=== PATIENT | female | born 1985 | race Caucasian/White ===

== ENCOUNTER 2016-12-15 21:56 | Emergency (ER) | payer OTHER ==
[2016-12-15 22:09] VITALS: BP 151/90; PULSE 84; TEMP 97.9; BMI 28.2
--- NOTE | 2016-12-15 22:32 | PDOC ---
History of Present Illness - General History Source: Patient Exam Limitations: No Limitations - History of Present Illness Initial Comments: 12/15/16 23:04 The patient is a 31 year old female with a significant past medical history of hypertension, presenting to the Emergency Department with headache and high blood pressure. The patient reports that her PCP raised her hydrochlorothiazide prescription from 25mg to 50mg about 6 months ago but that she has not been compliant with the medication in a few months. She reports that this morning she had a frontal headache, for which she took advil with some relief. She states that she then took her blood pressure which read 173/101. She states that her headache is persistent, and that she has previously had similar headaches. She admits that 6 months ago, at about the time of the medication increase, she went to the [place] to have plastic surgery. The patient denies a diet high in salt or fat content. Patient denies weakness, dizziness, or change in vision. Patient denies chest pain, palpitations, or shortness of breath. Patient denies nausea, vomiting, and diarrhea. Patient denies fever, chills, and cough. Familial Hx: mother hypertension, mother diabetes <Alayna Zacarias - Last Filed: 12/15/16 23:04> <Crystal Alejandro - Last Filed: 12/16/16 20:19> - General Chief Complaint: Blood Pressure Problem Stated Complaint: BLOOD PRESSURE PROBLEM Time Seen by Provider: 12/15/16 22:32 Past History <Alayna Zacarias - Last Filed: 12/15/16 23:04> - Past Medical History HTN: Yes - Psycho/Social/Smoking Cessation Hx Suicidal Ideation: No Smoking History: Never smoked <Crystal Alejandro - Last Filed: 12/16/16 20:19> - Past Medical History Allergies/Adverse Reactions: Allergies Allergy/AdvReac Type Severity Reaction Status Date / Time No Known Allergies Allergy Verified 12/15/16 22:07 Home Medications: Ambulatory Orders Hydrochlorothiazide [Hctz -] 25 mg PO DAILY 12/15/16 Hydrochlorothiazide [Hctz -] 25 mg PO DAILY #30 tablet 12/15/16 Review of Systems - Review of Systems Able to Perform ROS?: Yes Comments:: 12/15/16 23:04 GENERAL/CONSTITUTIONAL: + high blood pressure. No fever or chills. No weakness. HEAD, EYES, EARS, NOSE AND THROAT: No change in vision. No ear pain or discharge. No sore throat. CARDIOVASCULAR: No chest pain or shortness of breath. RESPIRATORY: No cough, wheezing, or hemoptysis. GASTROINTESTINAL: No nausea, vomiting, diarrhea or constipation. GENITOURINARY: No dysuria, frequency, or change in urination. MUSCULOSKELETAL: No joint or muscle swelling or pain. No neck or back pain. SKIN: No rash NEUROLOGIC: + headache. No vertigo, loss of consciousness, or change in strength /sensation. ENDOCRINE: No increased thirst. No abnormal weight change. HEMATOLOGIC/LYMPHATIC: No anemia, easy bleeding, or history of blood clots. ALLERGIC/IMMUNOLOGIC: No hives or skin allergy. <Alayna Zacarias - Last Filed: 12/15/16 23:04> *Physical Exam - Vital Signs Last Vital Signs Temp Pulse Resp BP Pulse Ox 97.9 F 84 18 151/90 99 12/15/16 22:08 12/15/16 22:08 12/15/16 22:08 12/15/16 22:08 12/15/16 22:08 - Physical Exam Comments: 12/15/16 23:06 GENERAL: Awake, alert, and fully oriented, in no acute distress HEAD: No signs of trauma EYES: PERRLA, EOMI, sclera anicteric, conjunctiva clear ENT: Auricles normal inspection, hearing grossly normal, nares patent, oropharynx clear without exudates. Moist mucosa NECK: Normal ROM, supple, no lymphadenopathy, JVD, or masses LUNGS: Breath sounds equal, clear to auscultation bilaterally. No wheezes, and no crackles HEART: Regular rate and rhythm, normal S1 and S2, no murmurs, rubs or gallops ABDOMEN: Soft, nontender, normoactive bowel sounds. No guarding, no rebound. No masses EXTREMITIES: Normal range of motion, no edema. No clubbing or cyanosis. No cords, erythema, or tenderness NEUROLOGICAL: Cranial nerves II through XII grossly intact. Normal speech, normal gait SKIN: Warm, Dry, normal turgor, no rashes or lesions noted. <Alayna Zacarias - Last Filed: 12/15/16 23:04> - Vital Signs Last Vital Signs Temp Pulse Resp BP Pulse Ox 97.9 F 84 18 151/90 99 12/15/16 22:08 12/15/16 22:08 12/15/16 22:08 12/15/16 22:08 12/15/16 22:08 <Crystal Alejandro - Last Filed: 12/16/16 20:19> Medical Decision Making - Medical Decision Making 12/16/16 20:19 Pt ran out of her HCTZ months ago and she is having high BP no and she wants a prescription for it. <Crystal Alejandro - Last Filed: 12/16/16 20:19> *DC/Admit/Observation/Transfer - Attestations Scribe Attestion: 12/15/16 23:06 Documentation prepared by Alayna Zacarias, acting as registered medical assistant for Crystal Alejandro MD. <Alayna Zacarias - Last Filed: 12/15/16 23:04> - Discharge Dispostion Admit: No <Crystal Alejandro - Last Filed: 12/16/16 20:19> Diagnosis at time of Disposition: Medication refill, HTN (hypertension) - Discharge Dispostion Disposition: HOME Condition at time of disposition: Stable - Prescriptions Prescriptions: Hydrochlorothiazide [Hctz -] 25 mg PO DAILY #30 tablet - Referrals Referrals: STAFF,NOT ON [Primary Care Provider] - - Patient Instructions Printed Discharge Instructions: DI for High Blood Pressure, How to Monitor Your Blood Pressure at Home
[2016-12-15] MEDS ORDERED: hydrALAZINE HCL 25 MG TABLET (FP) PO ONE (22:55)
[2016-12-15] MEDS ORDERED: HYDROCHLOROTHIAZIDE 25 MG TABLET (FP) PO ONE (22:58)
[2016-12-16] MEDS ORDERED: HYDROCHLOROTHIAZIDE 25 MG TABLET (FP) ONE (00:13)
== END 2016-12-15 23:50 | disposition home or self-care (01) ==
LOC: JER 21:56
DX: I10 Essential (primary) hypertension (principal)
CPT/HCPCS: 99281-25

== ENCOUNTER 2017-08-17 20:51 | Emergency (ER) | payer OTHER ==
[2017-08-17 20:59] VITALS: PULSE 82; BMI 29.7
[2017-08-17] MEDS ORDERED: SODIUM CHLORIDE 500 ML IV STA (21:31)
[2017-08-17] MEDS ORDERED: methylPREDNISolone NA SUCC 125 MG/2 ML VIAL IVPUSH ONE (21:31)
[2017-08-17] MEDS ORDERED: METOCLOPRAMIDE HCL INJECTION 10 MG/2 ML VIAL IVPUSH ONE (21:31)
--- NOTE | 2017-08-17 21:43 | PDOC ---
History of Present Illness - General Chief Complaint: Headache Stated Complaint: CHEST PAIN Time Seen by Provider: 08/17/17 21:11 History Source: Patient, Spouse Exam Limitations: No Limitations - History of Present Illness Initial Comments: 08/17/17 21:33 32yo Female patient with PmHx: HTN presents to ED c/o 2 day history of headache , seeing floaters (black spots in air), and elevated b/p although taking her daily medications. Patient states HTN began 1 year ago prior to plastic surgery in [facility], and after surgery b/p remained high. Patient states she was instructed to return to the [facility] and follow up with her PMD who prescribed her HCTZ 12.5mg. Patient reports she has been taking her medications as prescribed with h/a "every now and then." Patient also c/o associated left chest pain with deep breathing, and left arm numbness, and dizziness. Denies smoking or oral contraceptive use. LNMP: Aug 08. Denies vision changes, n/v/d , fever, abd pain, back pain or any other complaints at this time. PCP: Dr. Vásquez Timing/Duration: reports: other (2 days) Severity: Yes: moderate Episode Description: See HPI Associated Symptoms: denies: denies symptoms, confusion, fatigue, fever/chills, insomnia, loss of consciousness, muscle spasms, nausea/vomiting, numbness in legs/feet, paresthesia, ringing in ears, seizures, sleepy, slurred speech, tingling in legs/feet, trouble walking, vision changes, weakness, other Past History - Travel Traveled outside of the country in the last 30 days: No Close contact w/someone who was outside of country & ill: No - Past Medical History Allergies/Adverse Reactions: Allergies Allergy/AdvReac Type Severity Reaction Status Date / Time No Known Allergies Allergy Verified 08/17/17 20:59 Home Medications: Ambulatory Orders Hydrochlorothiazide [Hctz -] 25 mg PO DAILY 12/15/16 Hydrochlorothiazide [Hctz -] 25 mg PO DAILY #30 tablet 12/15/16 HTN: Yes - Suicide/Smoking/Psychosocial Hx Smoking History: Never smoked Neuro Specific PMHX - Complaint Specific PMHX Glaucoma: No Herniated Disk: No Laminectomy: No Migraine: No Multiple Sclerosis: No Neuropathy: No TIA: No Review of Systems - Review of Systems Able to Perform ROS?: Yes Is the patient limited Nepalese proficient: No Constitutional: No: Chills, Fever HEENTM: No: Eye Pain, Blurred Vision, Double Vision Respiratory: No: Cough, Shortness of Breath, Stridor, Wheezing Cardiac (ROS): Yes: Chest Pain. No: Edema, Lightheadedness, Palpitations, Syncope, Chest Tightness ABD/GI: No: Blood Streaked Bowels, Constipated, Diarrhea, Nausea, Poor Appetite , Poor Fluid Intake, Vomiting, Abdominal cramping : No: Burning, Dysuria, Flank Pain, Hematuria, Pain, Urgency Musculoskeletal: No: Back Pain Neurological: Yes: Headache, Numbness, Dizziness. No: Seizure, Tremors, Weakness, Unsteady Gait, Ataxia Psychiatric: No: Anxiety, Depression, Frequent Crying, Stressors, Sleep Pattern Change, Emotional Problems, Mood Swings, Change in Appetite, Other All Other Systems: Reviewed and Negative *Physical Exam - Vital Signs Last Vital Signs Temp Pulse Resp BP Pulse Ox 98.4 F 82 18 137/98 99 08/17/17 20:57 08/17/17 20:57 08/17/17 20:57 08/17/17 20:57 08/17/17 20:57 - Physical Exam General Appearance: Yes: Nourished, Appropriately Dressed. No: Apparent Distress, Disheveled, Mild Distress, Moderate Distress, Severe Distress HEENT: positive: EOMI, CELIA, Normal ENT Inspection, Normal Voice, Symmetrical, TMs Normal, Pharynx Normal. negative: Pharyngeal Erythema, Tonsillar Exudate, Tonsillar Erythema, Nasal Congestion, Rhinorrhea, Sinus Tenderness, Hearing Decreased, Hearing Grossly Normal, TM Bulging, TM Dull, TM Erythema Neck: positive: Trachea midline, Supple. negative: Stridor, Lymphadenopathy (R) , Lymphadenopathy (L), Tender lateral, Tender midline Respiratory/Chest: positive: Lungs Clear, Normal Breath Sounds. negative: Chest Tender, Respiratory Distress, Accessory Muscle Use, Labored Respiration, Rapid RR, Paradoxal Breathing, Rhonchi, Stridor Cardiovascular: positive: Regular Rhythm, Regular Rate Gastrointestinal/Abdominal: positive: Normal Bowel Sounds, Soft. negative: Distended, Guarding, Rebound, Tenderness Musculoskeletal: positive: Normal Inspection. negative: CVA Tenderness, Vertebral Tenderness Extremity: positive: Normal Capillary Refill, Normal Inspection, Normal Range of Motion. negative: Pedal Edema, Swelling, Calf Tenderness, Erythema, Inflammation Integumentary: positive: Normal Color, Dry, Warm Neurologic: positive: oven stripper II-XII NML intact, Fully Oriented, Alert, Normal Mood/ Affect, Normal Response, Motor Strength 03/01 ED Treatment Course - LABORATORY CBC & Chemistry Diagram: 08/17/17 20:40 08/17/17 20:40 - RADIOLOGY Radiology Studies Ordered: Category Date Time Status CHEST PA & LAT [RAD] Stat Radiology 08/17/17 21:22 Ordered *DC/Admit/Observation/Transfer Diagnosis at time of Disposition: Headache Qualifiers: Headache type: tension-type Headache chronicity pattern: acute headache Intractability: not intractable Qualified Code(s): G44.209 - Tension-type headache, unspecified, not intractable; G44.209 - Tension-type headache, unspecified, not intractable HTN (hypertension) Qualifiers: Hypertension type: other secondary hypertension Qualified Code(s): I15.8 - Other secondary hypertension; I15.8 - Other secondary hypertension; I15.8 - Other secondary hypertension - Discharge Dispostion Disposition: HOME Condition at time of disposition: Improved Admit: No - Referrals Referrals: STAFF,NOT ON [Primary Care Provider] - Vaibhav Ayala MD [Staff Physician] - - Patient Instructions Printed Discharge Instructions: High Blood Pressure Additional Instructions: Continue to take your medications as prescribed. Also, follow up with your doctor to discuss adjust of your dosage or change in medications. Call Dr. Ayala (Cardiology) to schedule appointment for further evaluation. Print Language: CUBAN - Post Discharge Activity Forms/Work/School Notes: Back to Work
[2017-08-17] MEDS ORDERED: METOCLOPRAMIDE HCL INJECTION 10 MG/2 ML VIAL ONE (22:38)
[2017-08-17] MEDS ORDERED: methylPREDNISolone NA SUCC 125 MG/2 ML VIAL ONE (22:38)
[2017-08-17 22:39] LABS: URINE APPEARANCE CLEAR; URINE BILIRUBIN NEGATIVE (NEGATIVE); URINE BLOOD NEGATIVE (NEGATIVE); URINE COLOR LTYELLOW; URINE GLUCOSE (UA) NEGATIVE (NEGATIVE); URINE KETONE NEGATIVE (NEGATIVE); URINE NITRITE NEGATIVE (NEGATIVE); URINE PROTEIN NEGATIVE (NEGATIVE); URINE UROBILINOGEN NEGATIVE mg/dL (0.2-1.0)
[2017-08-17 22:43] LABS: BASOPHIL 0.6 % (0-2.0); MCH 30.2 pg (25.7-33.7); MCHC 34.7 g/dl (32.0-36.0); MEAN CELL VOLUME 86.9 fl (80-96); MEAN PLT VOLUME 7.7 fl (7.5-11.1); NEUTROPHILS 67.6 % (42.8-82.8); PLATELET COUNT 369 K/MM3 (134-434); RDW 14.5 % (11.6-15.6); WHITE BLOOD COUNT 7.5 K/mm3 (4.0-10.0)
[2017-08-17 23:05] LABS: ALBUMIN 3.8 g/dl (3.4-5.0); ANION GAP 6 (8-16); BILIRUBIN,TOTAL 0.3 mg/dL (0.2-1.0); CALCIUM 9.3 mg/dL (8.5-10.1); CO2 30 mmol/L (21-32); CREATININE 0.8 mg/dL (0.55-1.02); GLUCOSE,RANDOM 94 mg/dL (74-106); SGOT/AST 15 U/L (15-37); SGPT/ALT 28 U/L (12-78); TOT PROT 7.8 g/dl (6.4-8.2)
[2017-08-17 23:13] LABS: ALK PHOS 94 U/L (45-117); CPK 59 IU/L (26-192); THYROID STIMULATING HORMONE 0.91 uIU/ml (0.358-3.74); TROPONIN I < 0.02 ng/ml (0.00-0.05)
[2017-08-17] MEDS ORDERED: METOPROLOL TARTRATE 25 MG TABLET (FP) PO ONE (23:30)
[2017-08-18 00:17] VITALS: TEMP 95.7
[2017-08-18] MEDS ORDERED: METOPROLOL TARTRATE 25 MG TABLET (FP) ONE (00:28)
[2017-08-18 01:07] VITALS: BP 98/58
--- NOTE | 2017-08-18 10:51 | EKG ---
Test Reason : Blood Pressure : / mmHG Vent. Rate : 065 BPM Atrial Rate : 065 BPM P-R Int : 134 ms QRS Dur : 084 ms QT Int : 408 ms P-R-T Axes : 041 025 031 degrees QTc Int : 424 ms NORMAL SINUS RHYTHM NORMAL ECG NO PREVIOUS ECGS AVAILABLE Confirmed by KAMRAN JOINER, SEBASTIAN ([id number]) on 08/18/2017 10:51:31 AM Referred By: Confirmed By:SEBASTIAN ANDREW MD
[2017-08-18 13:52] LABS: URINE LEUK ESTERASE Negative (NEGATIVE)
== END 2017-08-18 02:10 | disposition home or self-care (01) ==
LOC: JER 20:51
PROC: 3E0333Z Introduction of Anti-inflammatory into Peripheral Vein, Percutaneous Approach (ICD-10-PCS; principal; 2017-08-17)
PROC: 3E033GC Introduction of Other Therapeutic Substance into Peripheral Vein, Percutaneous Approach (ICD-10-PCS; 2017-08-17)
PROC: 3E033GC Introduction of Other Therapeutic Substance into Peripheral Vein, Percutaneous Approach (ICD-10-PCS; 2017-08-17)
DX: G44.209 Tension-type headache, unspecified, not intractable (principal); I15.8 Other secondary hypertension
CPT/HCPCS: 36415; 71020-TC; 80053; 81003; 82550; 84443; 84484; 84703; 85025; 93005; 93010; 96374; 96375; 99283-25

== ENCOUNTER 2018-09-01 08:50 | Emergency (ER) | payer OTHER ==
[2018-09-01 09:19] VITALS: BP 137/83; PULSE 70; TEMP 98.5; BMI 30.7
--- NOTE | 2018-09-01 09:31 | PDOC ---
History of Present Illness <Juliet Galarza - Last Filed: 09/01/18 14:41> - General History Source: Patient Exam Limitations: No Limitations - History of Present Illness Travel History: No Initial Comments: 09/01/18 09:31 33y F hx of htn presents with lower abdominal pain. Pt states since last night, she has been having gradually worsening suprapubic pain. pt notes the pain is constant, but seems to worsen for a few seconds a time. It seems worse when she is seated and improved when she is walking around. Pt denies any fever/chills, nausea/vomiting, diarrhea,dysuira. Pt does not some urinary frequency that has been going on for several months, she had gone to an ER in the [place] and had a UA that did not show any uti.. pt notes she never had pain associated with this previously. Pt denies any cp, sob, palpitations, vag bleeding, vag discharge LMP 08/22 Surgical hx: gall bladder PMD in [place] <Yeyo Cortez - Last Filed: 09/01/18 15:12> - General Chief Complaint: Pain Stated Complaint: PAIN Time Seen by Provider: 09/01/18 09:24 Past History <Juliet Galarza - Last Filed: 09/01/18 14:41> - Past Medical History COPD: No HTN: Yes - Suicide/Smoking/Psychosocial Hx Smoking History: Never smoked <Yeyo Cortez - Last Filed: 09/01/18 15:12> - Past Medical History Allergies/Adverse Reactions: Allergies Allergy/AdvReac Type Severity Reaction Status Date / Time No Known Allergies Allergy Verified 09/01/18 09:19 Home Medications: Ambulatory Orders Hydrochlorothiazide [Hctz -] 25 mg PO DAILY #30 tablet 12/15/16 Review of Systems - Review of Systems Able to Perform ROS?: Yes Comments:: 09/01/18 09:34 Constitutional - no reported Fever, Chills, HEENT: no reported vision changes, sore throat Respiratory: no reported cough, sob, hemoptysis Cardiac: no reported chest pain, palpitations, light headedness, leg swelling Abd/GI: +abd pain, no reported nausea, vomiting, blood per rectum, melena, diarrhea : +frequency, no reported dysuria, discharge Musculskelatal - no reported back pain, joint swelling skin - no reported bruising, erythema, rash neurological: no reported headache, numbness, focal weakness, tingling, ataxia, hematologic: no reported easy bruising, easy bleeding <Yeyo Cortez - Last Filed: 09/01/18 15:12> *Physical Exam - Vital Signs Last Vital Signs Temp Pulse Resp BP Pulse Ox 98.5 F 70 16 137/83 98 09/01/18 09:18 09/01/18 09:18 09/01/18 09:18 09/01/18 09:18 09/01/18 09:18 <Juliet Galarza - Last Filed: 09/01/18 14:41> - Vital Signs Last Vital Signs Temp Pulse Resp BP Pulse Ox 98.5 F 70 16 137/83 98 09/01/18 09:18 09/01/18 09:18 09/01/18 09:18 09/01/18 09:18 09/01/18 09:18 - Physical Exam Comments: 09/01/18 09:34 GENERAL: The patient is awake, alert, and fully oriented, Nontoxic - in no acute distress. HEAD: Normocephalic, atraumatic. EYES: extraocular movements intact, sclera anicteric, conjunctiva clear. ENT: Normal voice, Moist mucous membranes. NECK: Normal range of motion, supple LUNGS: Breath sounds equal, clear to auscultation bilaterally. No wheezes, no rhonchi, no rales. HEART: Regular rate and rhythm, normal S1 and S2 without murmur, rub or gallop. ABDOMEN: Soft, moderate suprapubic tenderness, No guarding, no rebound. No CVA tenderness EXTREMITIES: Normal range of motion, NEUROLOGICAL: No facial assymetry, Normal speech, movinga ll 4extremities spontaneously and symmetrically PSYCH: Normal mood, normal affect. SKIN: Warm, Dry, normal turgor, <Yeyo Cortez - Last Filed: 09/01/18 15:12> ED Treatment Course - LABORATORY CBC & Chemistry Diagram: 09/01/18 10:54 09/01/18 10:54 - ADDITIONAL ORDERS Additional order review: Laboratory Results 09/01/18 09/01/18 10:54 09:00 Sodium 138 Potassium 3.5 Chloride 104 Carbon Dioxide 28 Anion Gap 7 L BUN 15 Creatinine 0.7 Creat Clearance w eGFR > 60 Random Glucose 101 Calcium 9.2 Total Bilirubin 0.4 AST 19 ALT 26 Alkaline Phosphatase 83 Total Protein 7.0 Albumin 3.7 Urine Color Yellow Urine Appearance Slcloudy Urine pH 5.0 Ur Specific [place] 1.028 Urine Protein Negative Urine Glucose (UA) Negative Urine Ketones Negative Urine Blood Negative Urine Nitrite Negative Urine Bilirubin Negative Urine Urobilinogen Negative Ur Leukocyte Esterase Negative Urine HCG, Qual Negative 09/01/18 10:54 RBC 3.67 MCV 87.3 MCHC 35.7 RDW 14.7 MPV 7.8 Neutrophils % 67.1 Lymphocytes % 24.0 Monocytes % 7.1 Eosinophils % 1.5 Basophils % 0.3 - RADIOLOGY Radiograph Interpretation: 09/01/18 14:41 EXAM#: TYPE/EXAM: RESULT: [id number] CT/ABDOMEN PELVIS CT WITH CONTR HISTORY PROVIDED: Right lower quadrant pain. IMPRESSION: 1. Mild diffuse fatty infiltration of the liver. 2. Prominent uterus with thickened endometrium. 3. No evidence of appendicitis or acute pathology within the abdomen or pelvis. Please see above discussion. Reported By: Myles Chappell MD 09/01/18 1420 - Medications Given in the ED: ED Medications Discontinued Medications Generic Name Dose Route Start Last Admin Trade Name Freq PRN Reason Stop Dose Admin Morphine Sulfate 2 mg 09/01/18 10:42 09/01/18 10:58 Morphine Injection - IVPUSH 09/01/18 10:43 2 mg ONCE ONE Administration <Juliet Galarza - Last Filed: 09/01/18 14:41> - LABORATORY CBC & Chemistry Diagram: 09/01/18 10:54 09/01/18 10:54 <Yeyo Cortez - Last Filed: 09/01/18 15:12> Medical Decision Making - Medical Decision Making 09/01/18 09:36 Differential for the patient's pain includes possible urinary tract infection, kidney stones, ovarian torsion, consider possible appendicitis Will obtain UA, hcg if neg will obtain blood work and US 09/01/18 12:13 The patient's lab work was reviewed it is unremarkable without signs of leukocytosis or left shift. Her CMP and UA are negative, hCG is negative. She is ultrasound revealed thickened endometrial stripe. To reevaluate the patient the patient now has some mild right lower quadrant tenderness. Will obtain CT of abdomen to rule out appendicitis, patient agrees with plan 09/01/18 14:[address] neg for acute process pt feeling improved abd soft nontender will dc with pmd fu returnp recautions were discussed I discussed the physical exam findings, ancillary test results and final diagnoses with the patient. I answered all of the patient's questions. The patient was satisfied with the care received and felt comfortable with the discharge plan and treatment plan. The patient will call their primary care physician within 24 hours to arrange follow-up and will return to the Emergency Department with any new, persistent or worsening symptoms. <Yeyo Cortez - Last Filed: 09/01/18 15:12> *DC/Admit/Observation/Transfer - Attestations Scribe Attestion: 09/01/18 14:41 Documentation prepared by Juliet Galarza, acting as medical policy specialist for Yeyo Cortez MD <Juliet Galarza - Last Filed: 09/01/18 14:41> - Discharge Dispostion Decision to Admit order: No <Yeyo Cortez - Last Filed: 09/01/18 15:12> Diagnosis at time of Disposition: Abdominal pain Qualifiers: Abdominal location: lower abdomen, unspecified Qualified Code(s): R10.30 - Lower abdominal pain, unspecified - Discharge Dispostion Disposition: HOME Condition at time of disposition: Improved - Referrals [place]errals: [facility] [place] [Provider Group] Jean Paul Carlson MD [Staff Physician] - - Patient Instructions Printed Discharge Instructions: DI for Abdominal Pain-Adult Additional Instructions: Return to the emergency department immediately with ANY new, persistent or worsening symptoms including worsening abdominal pain, fevers, inability to tolerate oral intake, chest pain, shortness of breath or any other concerns. Stay well hydrated. You MUST call and follow up with your doctor tomorrow. Your emergency department visit is not complete without a followup with your doctor for reevaluation. Please make sure your doctor reviews the results of your emergency evaluation. Print Language: SLOVENIAN
[2018-09-01 10:26] LABS: HCG,QUALITATIVE URINE Negative
[2018-09-01 10:32] LABS: URINE APPEARANCE SLCLOUDY; URINE BILIRUBIN NEGATIVE (<2.0 mg/dL); URINE COLOR YELLOW; URINE GLUCOSE (UA) NEGATIVE (NEGATIVE); URINE KETONE NEGATIVE (NEGATIVE); URINE LEUK ESTERASE NEGATIVE (NEGATIVE); URINE NITRITE NEGATIVE (NEGATIVE); URINE PROTEIN NEGATIVE (NEGATIVE); URINE UROBILINOGEN NEGATIVE mg/dL (0.2-1.0)
[2018-09-01] MEDS ORDERED: morphine CARPU-JECT 2 MG/1 ML DISP.SYRIN IVPUSH ONE (10:42)
[2018-09-01] MEDS ORDERED: MORPHINE SULFATE 2 MG/ML VIAL ONE (10:48)
[2018-09-01 11:05] LABS: BASO % 0.3 % (0-2.0); EOS % 1.5 % (0-4.5); HEMOGLOBIN 11.4 GM/dL (10.7-15.3); MCH 31.1 pg (25.7-33.7); MCHC 35.7 g/dl (32.0-36.0); MEAN CELL VOLUME 87.3 fl (80-96); MEAN PLT VOLUME 7.8 fl (7.5-11.1); MONO % 7.1 % (3.8-10.2); NEUT % 67.1 % (42.8-82.8); PLATELET COUNT 366 K/MM3 (134-434); RBC 3.67 M/mm3 (3.60-5.2); RDW 14.7 % (11.6-15.6); WHITE BLOOD COUNT 6.5 K/mm3 (4.0-10.0)
[2018-09-01 11:38] LABS: ALBUMIN 3.7 g/dl (3.4-5.0); ALK PHOS 83 U/L (45-117); ANION GAP 7 MMOL/L (8-16); BILIRUBIN,TOTAL 0.4 mg/dL (0.2-1); BLOOD UREA NITROGEN 15 mg/dL (7-18); CALCIUM 9.2 mg/dL (8.5-10.1); CHLORIDE 104 mmol/L (98-107); CO2 28 mmol/L (21-32); CREATININE 0.7 mg/dL (0.55-1.3); GLUCOSE,RANDOM 101 mg/dL (74-106); POTASSIUM 3.5 mmol/L (3.5-5.1); SGOT/AST 19 U/L (15-37); SGPT/ALT 26 U/L (13-61); SODIUM 138 mmol/L (136-145)
== END 2018-09-01 15:25 | disposition home or self-care (01) ==
LOC: JER 08:50
PROC: 3E033NZ Introduction of Analgesics, Hypnotics, Sedatives into Peripheral Vein, Percutaneous Approach (ICD-10-PCS; principal; 2018-09-01)
DX: R10.30 Lower abdominal pain, unspecified (principal); I10 Essential (primary) hypertension
CPT/HCPCS: 36415; 74177-TC; 76830-TC; 80053; 81003; 84703; 85025; 87086; 96374; 99282-25

== ENCOUNTER 2018-11-25 11:31 | Emergency (ER) | payer OTHER ==
[2018-11-25 11:42] VITALS: BP 148/84; PULSE 90; TEMP 98.6; BMI 30.9
[2018-11-25] MEDS ORDERED: DEXAMETHASONE LIQUID 0.5 MG/5 ML 240 ML BULK BOTTLE PO ONE (12:06)
[2018-11-25] MEDS ORDERED: PENICILLIN G BENZATHINE 2,400,000 UNIT/4 ML PFS IM ONE (12:06)
[2018-11-25] MEDS ORDERED: DEXAMETHASONE SOD PHOSPHATE 4 MG/1 ML VIAL ONE (12:10)
[2018-11-25] MEDS ORDERED: PENICILLIN G BENZATHINE 1,200,000 UNIT/2 ML PFS IM ONE (12:10)
--- NOTE | 2018-11-25 12:10 | PDOC ---
History of Present Illness - General Chief Complaint: Cold Symptoms Stated Complaint: FEVER/SORE THROAT Time Seen by Provider: 11/25/18 11:54 - History of Present Illness Initial Comments: 11/25/18 12:06 33-year-old female without comorbidities presents for evaluation of sore throat and fever 3 days. She states her throat pain is increasing in severity. She has no comorbidities and she's healthy Past History - Past Medical History Allergies/Adverse Reactions: Allergies Allergy/AdvReac Type Severity Reaction Status Date / Time No Known Allergies Allergy Verified 09/01/18 09:19 COPD: No HTN: Yes - Immunization History Immunization Up to Date: Yes - Suicide/Smoking/Psychosocial Hx Smoking History: Never smoked Hx Alcohol Use: No Drug/Substance Use Hx: No Review of Systems - Review of Systems Constitutional: Yes: Fever HEENTM: Yes: Throat Pain *Physical Exam - Vital Signs Last Vital Signs Temp Pulse Resp BP Pulse Ox 98.6 F 90 18 148/84 97 11/25/18 11:40 11/25/18 11:40 11/25/18 11:40 11/25/18 11:40 11/25/18 11:40 - Physical Exam Comments: 11/25/18 12:07 HEAD: NC/AT EYES: Conjuntiva clear Ears: Canals and TM's normal NOSE: No d/c THROAT: Moist mucous membrances, oral pharanx erythemic with exudate, uvula midline NECK: Supple anterior cervical adenopathy CARDIAC: S1 S2 LUNGS: CTA Full and Equal breath sounds ABDOMEN: Soft NT ND MS: Full ROM in all joints without edema NEUROLOGIC: No gross sensory or motor deficits, NVID SKIN: Normal color and temperature no lesions or rashes Moderate Sedation - Procedure Monitoring Vital Signs: Procedure Monitoring Vital Signs Temperature 98.6 F 11/25/18 11:40 Pulse Rate 90 11/25/18 11:40 Respiratory Rate 18 11/25/18 11:40 Blood Pressure 148/84 11/25/18 11:40 O2 Sat by Pulse Oximetry (%) 97 11/25/18 11:40 *DC/Admit/Observation/Transfer Diagnosis at time of Disposition: Strep pharyngitis - Discharge Dispostion Disposition: HOME Condition at time of disposition: Stable Decision to Admit order: No - Referrals Referrals: ON STAFF,NOT [Primary Care Provider] - - Patient Instructions Printed Discharge Instructions: Strep Throat, DI for Strep Throat Additional Instructions: You were treated for strep throat with antibiotics in the emergency room as well as a steroid. Do not require antibiotics at home. He may take Tylenol for pain and do warm saltwater gargles. You should start to feel better in about a day or 2. Avoid contacts for the next 48 hours. If she must be in public or go to work he must wear a mask. Change her toothbrush in 24 hours. Return to the emergency room should symptoms worsen or go unresolved and follow-up with your primary care physician in one to 2 days for further evaluation and treatment options. - Post Discharge Activity
[2018-11-25] MEDS ORDERED: PENICILLIN G BENZATHINE 2,400,000 UNIT/4 ML PFS ONE (12:12)
== END 2018-11-25 12:25 | disposition home or self-care (01) ==
LOC: JERFT 11:31
DX: J02.0 Streptococcal pharyngitis (principal); B95.5 Unspecified streptococcus as the cause of diseases classified elsewhere
CPT/HCPCS: 96372; 99281-25

== ENCOUNTER 2018-12-26 18:01 | Emergency (ER) | payer OTHER ==
[2018-12-26 18:24] VITALS: TEMP 98.5; BMI 32.5
--- NOTE | 2018-12-26 18:24 | PDOC ---
Rapid Medical Evaluation Chief Complaint: Blood Pressure Problem Time Seen by Provider: 12/26/18 18:20 Medical Evaluation: Allergies Allergy/AdvReac Type Severity Reaction Status Date / Time No Known Allergies Allergy Verified 09/01/18 09:19 12/26/18 18:20 I have performed a brief in-person evaluation of this patient. The patient presents with a chief complaint of:concern about high blood pressure and associated BOYER since yesterday morning Pertinent physical exam findings:NAD no appreciable asymmetry I have ordered the following:u preg labs The patient will proceed to the ED for further evaluation. 12/26/18 18:23 Discharge Disposition - Diagnosis Headache, Hypertension - Referrals - Patient Instructions - Post Discharge Activity
[2018-12-26 18:40] LABS: BASO % 0.9 % (0-2.0); EOS % 1.2 % (0-4.5); HEMATOCRIT 34.1 % (32.4-45.2); HEMOGLOBIN 11.7 GM/dL (10.7-15.3); LYMPH % 30.2 % (8-40); MCH 29.2 pg (25.7-33.7); MCHC 34.4 g/dl (32.0-36.0); MEAN PLT VOLUME 7.7 fl (7.5-11.1); NEUT % 62.7 % (42.8-82.8); PLATELET COUNT 402 K/MM3 (134-434); RBC 4.01 M/mm3 (3.60-5.2); RDW 15.3 % (11.6-15.6); WHITE BLOOD COUNT 7.2 K/mm3 (4.0-10.0)
[2018-12-26 18:50] LABS: INR 0.96 (0.83-1.09); PROTHROMBIN TIME (PATIENT) 11.3 SEC (9.7-13.0)
[2018-12-26 19:16] LABS: ALBUMIN 3.8 g/dl (3.4-5.0); ALK PHOS 92 U/L (45-117); ANION GAP 7 MMOL/L (8-16); BILIRUBIN,TOTAL 0.3 mg/dL (0.2-1); BLOOD UREA NITROGEN 10 mg/dL (7-18); CALCIUM 9.2 mg/dL (8.5-10.1); CHLORIDE 106 mmol/L (98-107); CO2 26 mmol/L (21-32); CREATININE 0.9 mg/dL (0.55-1.3); GLUCOSE,RANDOM 105 mg/dL (74-106); POTASSIUM 3.7 mmol/L (3.5-5.1); SGOT/AST 15 U/L (15-37); SGPT/ALT 23 U/L (13-61); SODIUM 139 mmol/L (136-145); TOT PROT 7.6 g/dl (6.4-8.2)
--- NOTE | 2018-12-26 19:50 | PDOC ---
History of Present Illness - General Chief Complaint: Blood Pressure Problem Stated Complaint: HYPERTENSION/HEADACHE Time Seen by Provider: 12/26/18 18:20 History Source: Patient Exam Limitations: No Limitations - History of Present Illness Initial Comments: 12/26/18 19:38 Pt is a 33yo F with PMH of HTN presenting to ED today with elevated blood pressure and left sided headache. Pt states the headache started yesterday. She says that she usually gets a headache when her blood pressure is high. Yesterday when she checked she noticed that her blood pressure was 150s/90s. She woke up with a headache this morning and checked her bp again which was 150s /100s. She was talking with her friend and stated that her friend noticed the left side of her face was slightly swollen. Pt checked her bp again and said it was 170s/100s. She had been taking HCTZ 25mg daily for the past 8 years or so. No new changes in medications or dosage. She endorses left sided BOYER which does not radiate. PMD: Hammad Schneider PMH: htn PSH: none Meds: hctz 25mg Social: denies Allergies: nkda Past History - Past Medical History Allergies/Adverse Reactions: Allergies Allergy/AdvReac Type Severity Reaction Status Date / Time No Known Allergies Allergy Verified 09/01/18 09:19 Home Medications: Ambulatory Orders Hydrochlorothiazide 12.5 mg PO HS #3 tablet 12/26/18 COPD: No HTN: Yes - Immunization History Immunization Up to Date: Yes - Suicide/Smoking/Psychosocial Hx Smoking History: Never smoked Information on smoking cessation initiated: No Hx Alcohol Use: No Drug/Substance Use Hx: No *Physical Exam - Vital Signs Last Vital Signs Temp Pulse Resp BP Pulse Ox 98.5 F 97 H 18 180/81 H 99 12/26/18 18:11 12/26/18 18:11 12/26/18 18:11 12/26/18 18:11 12/26/18 18:11 Moderate Sedation - Procedure Monitoring Vital Signs: Procedure Monitoring Vital Signs Temperature 98.5 F 12/26/18 18:11 Pulse Rate 97 H 12/26/18 18:11 Respiratory Rate 18 12/26/18 18:11 Blood Pressure 180/81 H 12/26/18 18:11 O2 Sat by Pulse Oximetry (%) 99 12/26/18 18:11 ED Treatment Course - LABORATORY CBC & Chemistry Diagram: 12/26/18 18:28 12/26/18 18:28 - ADDITIONAL ORDERS Additional order review: Laboratory Results 12/26/18 12/26/18 12/26/18 18:28 18:28 18:28 PT with INR 11.30 INR 0.96 Sodium 139 Potassium 3.7 Chloride 106 Carbon Dioxide 26 Anion Gap 7 L BUN 10 Creatinine 0.9 Creat Clearance w eGFR > 60 Random Glucose 105 Calcium 9.2 Total Bilirubin 0.3 AST 15 ALT 23 Alkaline Phosphatase 92 Total Protein 7.6 Albumin 3.8 Urine HCG, Qual Negative 12/26/18 18:28 RBC 4.01 MCV 85.0 MCHC 34.4 RDW 15.3 MPV 7.7 Neutrophils % 62.7 Lymphocytes % 30.2 D Monocytes % 5.0 Eosinophils % 1.2 Basophils % 0.9 *DC/Admit/Observation/Transfer Diagnosis at time of Disposition: Headache Qualifiers: Headache type: unspecified Headache chronicity pattern: acute headache Intractability: not intractable Qualified Code(s): R51 - Headache Hypertension Qualifiers: Hypertension type: unspecified Qualified Code(s): I10 - Essential (primary) hypertension - Discharge Dispostion Disposition: HOME Condition at time of disposition: Improved - Prescriptions Prescriptions: Hydrochlorothiazide 12.5 mg PO HS #3 tablet - Referrals - Patient Instructions Printed Discharge Instructions: DI for High Blood Pressure Additional Instructions: You were seen in the emergency room for high blood pressure and headache. The blood work was normal. A prescription was sent to your pharmacy for hydrocholorothiazide 12.5mg for you to take at night. Take the 25mg in the morning as directed. Please make sure you see your doctor on Saturday and discuss ways for blood pressure control. Come back to the emergency room if headaches get worse, you have weakness in your arms or legs, you have slurred speech, you start seeing spots or stars, you have chest pain, you feel short of breath, you have swelling or if any new concerning symptom develops. Thank you - Post Discharge Activity
[2018-12-26] MEDS ORDERED: ACETAMINOPHEN 500 MG TABLET (FP) PO ONE (19:51)
[2018-12-26] MEDS ORDERED: HYDROCHLOROTHIAZIDE 12.5 MG CAPSULE (FP) PO ONE (19:52)
[2018-12-26] MEDS ORDERED: HYDROCHLOROTHIAZIDE 25 MG TABLET (FP) PO ONE (20:01)
[2018-12-26] MEDS ORDERED: ACETAMINOPHEN 325 MG TABLET (FP) ONE (20:06)
[2018-12-26] MEDS ORDERED: HYDROCHLOROTHIAZIDE 25 MG TABLET (FP) ONE (20:06)
--- NOTE | 2018-12-26 20:09 | PDOC ---
Attending Attestation - Resident Resident Name: Anne-MarieBridgett - ED Attending Attestation I have performed the following: I have examined & evaluated the patient, The case was reviewed & discussed with the resident, I agree w/resident's findings & plan, Exceptions are as noted - HPI HPI: 12/26/18 20:05 33 year old female c/ hx of HTN presents with elevated blood pressures. The patient noted yesterday of developing a mild left sided tension like headache. She knew that this was like her prior episodes of elevated BP. She is reportedly adherent to her HTN med HCTZ 25 mg qdaily. Denies CP/SOB, recent illnesses, fevers, chills, cough, vomiting, diarrhea, urinary frequency. Pt stated that this had occurred before where her BP was improved with 50 mg HCTZ. She has had prior discussions with her PMD about potentially increasing her BP medication, whi they have not. - Physicial Exam PE: 12/26/18 20:08 GENERAL: Awake, alert, and fully oriented, in no acute distress HEAD: No signs of trauma EYES: EOMI, sclera anicteric, conjunctiva clear ENT: Auricles normal inspection, hearing grossly normal, nares patent, Moist mucosa NECK: Normal ROM, supple LUNGS: Breath sounds equal, clear to auscultation bilaterally. No wheezes, and no crackles HEART: Regular rate and rhythm, normal S1 and S2, no murmurs, rubs or gallops ABDOMEN: Soft, nontender, No guarding, no rebound. No masses EXTREMITIES: Normal range of motion, no edema. No clubbing or cyanosis. No cords, erythema, or tenderness NEUROLOGICAL: Cranial nerves II through XII grossly intact. Normal speech SKIN: Warm, Dry, normal turgor, no rashes or lesions noted. - Medical Decision Making 12/26/18 20:10 Vital Signs Temp Pulse Resp BP Pulse Ox 98.5 F 97 H 18 180/81 H 99 12/26/18 18:11 12/26/18 18:11 12/26/18 18:11 12/26/18 18:11 12/26/18 18:11 33-year-old female patient presents with hypertension. I suspect she is a tension headache secondary to her elevated blood pressure. I do not suspect subarachnoid hemorrhage or intracranial hemorrhage. We'll obtain labs and EKG. We'll treat patient's headache. We'll give an additional dosing of 12.5 mg of HCTZ. If the workup is unremarkable and the patient's symptoms improve, the patient be discharged home with follow up with PMD.I suspect that this may be 2/ 2 essential HTN. 12/26/18 20:45 CBC, BMP 12/26/18 18:28 12/26/18 18:28 CMP Sodium 139 mmol/L (136-145) 12/26/18 18:28 Potassium 3.7 mmol/L (3.5-5.1) 12/26/18 18:28 Chloride 106 mmol/L (98-107) 12/26/18 18:28 Carbon Dioxide 26 mmol/L (21-32) 12/26/18 18:28 Anion Gap 7 MMOL/L (8-16) L 12/26/18 18:28 BUN 10 mg/dL (7-18) 12/26/18 18:28 Creatinine 0.9 mg/dL (0.55-1.3) 12/26/18 18:28 Creat Clearance w eGFR > 60 (>60) 12/26/18 18:28 Random Glucose 105 mg/dL (74-106) 12/26/18 18:28 Calcium 9.2 mg/dL (8.5-10.1) 12/26/18 18:28 Total Bilirubin 0.3 mg/dL (0.2-1) 12/26/18 18:28 AST 15 U/L (15-37) 12/26/18 18:28 ALT 23 U/L (13-61) 12/26/18 18:28 Alkaline Phosphatase 92 U/L (45-117) 12/26/18 18:28 Troponin I < 0.02 ng/ml (0.00-0.05) 12/26/18 18:28 Total Protein 7.6 g/dl (6.4-8.2) 12/26/18 18:28 Albumin 3.8 g/dl (3.4-5.0) 12/26/18 18:28 Heart Score/ECG Review #1 ECG reviewed & interpreted by me at: 20:10 12/26/18 20:09 NSR 67, no std/anita, normal axis, normal intervals, T wave flat III, QTC 397 msec
[2018-12-26 21:14] VITALS: BP 152/82; PULSE 67
--- NOTE | 2018-12-30 13:58 | EKG ---
Test Reason : Blood Pressure : / mmHG Vent. Rate : 067 BPM Atrial Rate : 067 BPM P-R Int : 132 ms QRS Dur : 084 ms QT Int : 376 ms P-R-T Axes : 036 025 017 degrees QTc Int : 397 ms NORMAL SINUS RHYTHM NORMAL ECG WHEN COMPARED WITH ECG OF 17-AUG-2017 22:44, NO SIGNIFICANT CHANGE WAS FOUND Confirmed by MD Farah Daniel ([id number]) on 12/30/2018 1:58:14 PM Referred By: Confirmed By:Reji Farah MD
== END 2018-12-26 21:14 | disposition home or self-care (01) ==
LOC: JER 18:01
DX: I10 Essential (primary) hypertension (principal)
CPT/HCPCS: 36415; 80053; 84484; 84703; 85025; 85610; 93005; 93010; 99282-25

== ENCOUNTER 2019-01-18 18:49 | Emergency (ER) | payer OTHER ==
[2019-01-18 18:57] VITALS: BP 140/80; PULSE 111; TEMP 98.3; BMI 31.7
--- NOTE | 2019-01-18 19:35 | PDOC ---
History of Present Illness - General Chief Complaint: Wound Stated Complaint: TOES ARE BURNING Time Seen by Provider: 01/18/19 19:03 - History of Present Illness Initial Comments: 01/18/19 19:32 34-year-old female with a past medical history significant for hypertension presents for evaluation of right fourth toe pain. She states she received the pedicure 5 days ago and immediately after the next day she began to have pain in her right fourth toe with clear drainage. No systemic symptoms. Past History - Past Medical History Allergies/Adverse Reactions: Allergies Allergy/AdvReac Type Severity Reaction Status Date / Time No Known Allergies Allergy Verified 01/18/19 18:57 Home Medications: Ambulatory Orders Hydrochlorothiazide 12.5 mg PO HS #7 tablet 12/26/18 Cephalexin [Keflex] 500 mg PO QID #40 capsule 01/18/19 Sulfamethoxazole/Trimethoprim [Bactrim Ds -] 1 tab PO BID #14 tablet 01/18/19 COPD: No HTN: Yes - Immunization History Immunization Up to Date: Yes - Suicide/Smoking/Psychosocial Hx Smoking History: Never smoked Hx Alcohol Use: No Drug/Substance Use Hx: No Review of Systems - Review of Systems Constitutional: No: Fever Musculoskeletal: Yes: See HPI *Physical Exam - Vital Signs Last Vital Signs Temp Pulse Resp BP Pulse Ox 98.3 F 111 H 20 140/80 99 01/18/19 18:55 01/18/19 18:55 01/18/19 18:55 01/18/19 18:55 01/18/19 18:55 - Physical Exam Comments: 01/18/19 19:32 Right fourth toe is mildly erythematous without induration or warmth. There is a small area of fluctuance at the lateral aspect of the nail fold and clear drainage can be expressed. There are no gross sensorimotor deficits in the toe. No pain with passive motion of the joints. Moderate Sedation - Procedure Monitoring Vital Signs: Procedure Monitoring Vital Signs Temperature 98.3 F 01/18/19 18:55 Pulse Rate 111 H 01/18/19 18:55 Respiratory Rate 20 01/18/19 18:55 Blood Pressure 140/80 01/18/19 18:55 O2 Sat by Pulse Oximetry (%) 99 01/18/19 18:55 Medical Decision Making - Medical Decision Making 01/18/19 19:33 Draining paronychia right fourth toe. We'll treat with Keflex and Bactrim and outpatient follow-up with podiatry. Recommended the use of warm compresses to encourage drainage. *DC/Admit/Observation/Transfer Diagnosis at time of Disposition: Paronychia, toe - Discharge Dispostion Disposition: HOME Condition at time of disposition: Stable Decision to Admit order: No - Prescriptions Prescriptions: Cephalexin [Keflex] 500 mg PO QID #40 capsule Sulfamethoxazole/Trimethoprim [Bactrim Ds -] 1 tab PO BID #14 tablet - Referrals Referrals: Janeth Avery [Non Staff, Medical] - Addison Obrien MD [Non Staff, Medical] - Kathryn Sanchez DPM [Non Staff, Medical] - Remi Vásquez [Non Staff, Medical] - Erlinda Watt MD [Non Staff, Medical] - John Orosco MD [Non Staff, Medical] - Kelly Villalba [Non Staff, Medical] - Dirk Eller MD [Staff Physician] - Jag Stewart MD [Non Staff, Medical] - - Patient Instructions Printed Discharge Instructions: DI for Paronychia, Paronychia Additional Instructions: Please take the antibiotics as directed and finish the entire course. Follow-up with podiatry in 1-2 days for further evaluation and treatment options. Return to the emergency room should symptoms worsen or go unresolved. Warm compresses 5 -6 times a day to encourage drainage. Tylenol and Motrin as directed for pain. - Post Discharge Activity
== END 2019-01-18 19:38 | disposition home or self-care (01) ==
LOC: JERFT 18:49
DX: L03.031 Cellulitis of right toe (principal)
CPT/HCPCS: 99281-25

== ENCOUNTER 2019-03-20 08:02 | Emergency (ER) | payer OTHER ==
[2019-03-20 08:08] VITALS: BP 112/78; PULSE 71; TEMP 98.5; BMI 29.7
[2019-03-20] MEDS ORDERED: guaiFENesin/CODEINE 10 ML UNIT-DOSE CUPS PO ONE (08:31)
[2019-03-20] MEDS ORDERED: guaiFENesin/CODEINE 5 ML UNIT-DOSE CUPS PO ONE (08:46)
--- NOTE | 2019-03-20 09:40 | PDOC ---
History of Present Illness - General Chief Complaint: Nausea/Vomiting Stated Complaint: COUGH, VOMITING Time Seen by Provider: 03/20/19 08:31 History Source: Patient Exam Limitations: No Limitations - History of Present Illness Initial Comments: 03/20/19 09:07 34-year-old female with history of hypertension presents to ED with cough for the past 3 weeks now with posttussis vomiting containing yellowish sputum. Patient denies recent travel recent illness, fever, chills, chest pain or shortness of breath. Patient also denies smoking or recent sick contacts. Patient has taken nothing for the above symptoms and decided come to the ER today when she could not catch her breath secondary to thick sputum in the back of her throat causing her to gag. Timing/Duration: reports: other Severity: reports: mild, moderate Possible Cause: Yes: no prior episodes Modifying Factors: improves with: coughing Associated Symptoms: reports: cough, nasal drainage Past History - Travel Traveled outside of the country in the last 30 days: No Close contact w/someone who was outside of country & ill: No - Past Medical History Allergies/Adverse Reactions: Allergies Allergy/AdvReac Type Severity Reaction Status Date / Time No Known Allergies Allergy Verified 03/20/19 08:08 Home Medications: Ambulatory Orders Amlodipine Besylate [Norvasc -] 5 mg PO DAILY 03/20/19 Lisinopril/Hydrochlorothiazide [Lisinopril-Hctz 20-25 mg Tab] 1 each PO DAILY COPD: No HTN: Yes - Immunization History Immunization Up to Date: Yes - Suicide/Smoking/Psychosocial Hx Smoking History: Never smoked Information on smoking cessation initiated: No Hx Alcohol Use: No Drug/Substance Use Hx: No Patient Lives Alone: No Lives with/in: spouse/SO Review of Systems - Review of Systems Able to Perform ROS?: Yes Constitutional: No: Symptoms Reported HEENTM: Yes: Nose Congestion Respiratory: Yes: Cough, Productive cough Cardiac (ROS): No: Symptoms Reported ABD/GI: Yes: Vomiting : No: Symptoms Reported Musculoskeletal: No: Symptoms Reported Integumentary: No: Symptoms Reported Neurological: No: Symptoms reported *Physical Exam - Vital Signs Last Vital Signs Temp Pulse Resp BP Pulse Ox 98.5 F 71 18 112/78 99 03/20/19 08:06 03/20/19 08:06 03/20/19 08:06 03/20/19 08:06 03/20/19 08:06 - Physical Exam General Appearance: Yes: Nourished, Appropriately Dressed. No: Apparent Distress HEENT: positive: EOMI, CELIA, Normal Voice, TMs Normal, Pharynx Normal, Nasal Congestion Neck: positive: Supple Respiratory/Chest: positive: Lungs Clear, Normal Breath Sounds. negative: Respiratory Distress, Accessory Muscle Use Cardiovascular: positive: Regular Rhythm, Regular Rate. negative: Murmur Gastrointestinal/Abdominal: positive: Soft. negative: Tenderness Extremity: positive: Normal Inspection Integumentary: positive: Normal Color, Warm, Moist Neurologic: positive: Motor Strength 5/5 (ambulatory) ED Treatment Course - RADIOLOGY Radiology Studies Ordered: Category Date Time Status CHEST PA & LAT [RAD] Stat Radiology 03/20/19 08:32 Ordered - Medications Given in the ED: ED Medications Discontinued Medications Generic Name Dose Route Start Last Admin Trade Name Freq PRN Reason Stop Dose Admin Guaifenesin/Codeine Phosphate 10 ml 03/20/19 08:31 03/20/19 08:50 Robitussin Ac - PO 03/20/19 08:32 10 ml ONCE ONE Administration Medical Decision Making - Medical Decision Making 03/20/19 09:08 Chief complaint: Nasal congestion, productive cough now causing posttussis vomiting the past 3 weeks. Exam. Patient with nasal congestion without sinus pressure. Patient with normal vital signs. Plan: Robitussin AC along with chest x-ray. 03/20/19 09:40 X-ray negative for acute findings. Patient has no active vomiting here and states cough has improved slightly. Patient be discharged home with Claritin, Robitussin-AC along with azithromycin. *DC/Admit/Observation/Transfer Diagnosis at time of Disposition: Bronchitis - Discharge Dispostion Disposition: HOME Condition at time of disposition: Improved - Referrals - Patient Instructions Printed Discharge Instructions: DI for Acute Bronchitis Additional Instructions: Please take Robitussin to control your cough. Take Claritin for nasal congestion. And take antibiotic as prescribed until completed. Drink plenty of fluids and keep nasal passages clear - Post Discharge Activity
== END 2019-03-20 09:55 | disposition home or self-care (01) ==
LOC: JER 08:02
DX: J40 Bronchitis, not specified as acute or chronic (principal)
CPT/HCPCS: 71046-TC-FY; 99282-25

== ENCOUNTER 2021-02-02 20:10 | Emergency (ER) | payer OTHER ==
[2021-02-02 21:12] VITALS: BP 170/100; PULSE 96; TEMP 99.7; BMI 30.9
[2021-02-02] MEDS ORDERED: DEXAMETHASONE LIQUID 0.5 MG/5 ML PO ONE (22:13)
[2021-02-02] MEDS ORDERED: DEXAMETHASONE SOD PHOSPHATE 10 MG/1 ML VIAL ONE (22:14)
== END 2021-02-02 22:15 | disposition home or self-care (01) ==
LOC: JER 20:10 → JERFT 20:10
DX: J02.9 Acute pharyngitis, unspecified (principal); Z11.52 Encounter for screening for COVID-19
CPT/HCPCS: 87880; 99283-25; C9803; U0003; U0005